=== PATIENT | male | born 1950 | race Caucasian/White ===

== ENCOUNTER 2019-07-24 18:05 | Emergency (ER) | payer OTHER ==
[~2019-07-24] VITALS: Ht 170.2 cm; Wt 81.7 kg
[2019-07-24] MEDS ORDERED: PLAVIX75 MG PO (18:36)
[2019-07-24] MEDS ORDERED: ROSUVASTATIN CAL5 MG PO (18:36)
--- NOTE | 2019-07-25 07:43 | EKG ---
[facility] [address] [facility] [place], [place] [address] Signed Normal sinus rhythm Normal ECG No previous ECGs available Confirmed by NILDA NUNES MD [id number] on 07/25/2019 7:43:29 AM Electronically Signed By: NILDA NUNES MD 07/25/19 0743 PATIENT NAME: CLARISSA GROVER Electrocardiogram DATE OF : 54 PHYSICIAN: NILDA NUNES MD REPORT #: [id number] REPORT IS CONFIDENTIAL AND NOT TO BE RELEASED WITHOUT AUTHORIZATION
== END 2019-07-24 22:36 | disposition home or self-care (01) ==
LOC: ED 18:05
DX: S06.0X9A Concussion with loss of consciousness of unspecified duration, initial encounter (principal); S16.1XXA Strain of muscle, fascia and tendon at neck level, initial encounter; E87.1 Hypo-osmolality and hyponatremia; W01.198A Fall on same level from slipping, tripping and stumbling with subsequent striking against other object, initial encounter; Z87.891 Personal history of nicotine dependence; Z79.899 Other long term (current) drug therapy
CPT/HCPCS: 70450; 70486; 72125; 80053; 83735; 84484; 85025; 93005; 93010; 99285-25